=== PATIENT | female | born 1980 | race Caucasian/White ===

== ENCOUNTER 2017-11-26 15:33 | Emergency (ER) | payer OTHER ==
[~2017-11-26] VITALS: Ht 165.1 cm; Wt 75.0 kg
[2017-11-26 15:35] VITALS: BP 149/60; PULSE 94; RESP 16; TEMP 97.9; O2SAT 98
[2017-11-26] MEDS ORDERED: LIDOCAINE HCL 1% 30 ML VIAL INFIL ONE (15:45)
[2017-11-26] MEDS ORDERED: DIPHTH/TETANUS/ACEL PERTUSSIS (BOOSTER) 0.5 ML VIAL/PFS IM ONE (15:45)
[2017-11-26] MEDS ORDERED: ceFAZolin 2 GM PREMIX 50 ML IV ONE (15:45)
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
[2017-11-26] MEDS ORDERED: LEVO137T2 PO (15:54)
[2017-11-26] MEDS ORDERED: SODIUM CHLOR 0.9% 1000 ML INJ 1,000 ML IV ONE (16:00)
[2017-11-26] MEDS ORDERED: LIDOCAINE HCL 2% 20 ML VIAL ONE (17:09)
[2017-11-26] MEDS ORDERED: TRAM50 PO (19:01)
[2017-11-26 19:13] VITALS: BP 126/66; PULSE 91; RESP 16; O2SAT 98
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
[2017-11-26 19:22] VITALS: BP 126/66; PULSE 75; RESP 18; O2SAT 99
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
== END 2017-11-26 21:18 | disposition home or self-care (01) ==
LOC: NEPE 15:33 → EDBD 15:33 → MERGE 15:33 → NEPE 21:18
DX: S41.111A Laceration without foreign body of right upper arm, initial encounter (principal); S21.031A Puncture wound without foreign body of right breast, initial encounter; S21.032A Puncture wound without foreign body of left breast, initial encounter; X99.1XXA Assault by knife, initial encounter; Z23 Encounter for immunization; Z79.899 Other long term (current) drug therapy
CPT/HCPCS: 12004; 71250; 72125; 84703; 90471; 90715; 96365; 96366; 99284; J0690; J7030; 12002